=== PATIENT | female | born 1940 | race Caucasian/White ===

== ENCOUNTER → 2019-07-01 09:56 | Outpatient (BNVA) | payer MEDICARE, OTHER, SELFPAY | PROVIDERS: Family Provider Nurse Practitioner Family; Visit Provider Registered Nurse | DX: E11.9 Type 2 diabetes mellitus without complications (principal); R31.9 Hematuria, unspecified; N39.46 Mixed incontinence | CPT/HCPCS: 80053; 81000; 82044; 83036; 85025 ==

== ENCOUNTER 2019-09-11 05:51 | Day surgery (SDC) | payer MEDICARE, OTHER, SELFPAY ==
[2019-09-10 13:50] VITALS: BMI 27.0
[2019-09-11 06:19] VITALS: BP 173/104; PULSE 69; RESP 18; TEMP 36.3; O2SAT 94
[2019-09-11 06:33] LABS: Glucose Point of Care 143 mg/dL (70-110)
[2019-09-11] MEDS: sodium chloride 0.9% 1,000 ML 30 ML IV (06:35)
--- NOTE | 2019-09-11 06:37 | ANES.PREANE2 ---
Pre-Anesthetic Assessment Pre-Anesthetic Assessment: Height/Weight: Height 1.55 m Weight 64.864 kg Temp Pulse Resp BP Pulse Ox 97.4 F L 69 18 173/104 94 09/11/19 06:19 09/11/19 06:19 09/11/19 06:19 09/11/19 06:19 09/11/19 06:19 Preop Diagnosis: Subcutaneous mass right side of the face Proposed Procedure: Operation Date: 09/11/19 07:00 Proposed Procedures p Excision of 2 sebaceous cysts on face 39806 L72.3(Not Applicable) - Denis Valera MD Last intake: Intake Last Liquid Date 09/10/19 Last Liquid Time 18:00 Last Solid Date 09/10/19 Last Solid Time 18:00 Social: Social History: No alcohol and No tobacco Exam: Pre-Anes Outpt Exam: alert, oriented x 3, clear to auscultation bilaterally and regular rate & rhythm Airway: Submandibular: WNL Cervical ROM: WNL MP: 2 Dentition: False (UPPER and lower) History/ROS: No significant history except as noted Pulmonary: Pulmonary: None reported CV/HEM: CV/HEM: None reported : : None reported Hepatic: Hepatic: None reported GI: GI: GERD (occ) Metabolic: Metabolic: DM Musc/skel: Musc/skel: OA/DJD Neuropsych: Neuropsych: None reported Anesthetic Plan: ASA status: 2 Anesthesia: Anesthesia Evaluation and General Risk of > 500 ml blood loss (7ml/kg in children): No Meds/Allergies Current Medications: Current Medications Generic Name Dose Route Start Last Admin Trade Name Freq PRN Reason Stop Dose Admin Sodium Chloride 1,000 mls @ 30 ml s/hr 09/11/19 06:00 09/11/19 06:35 Sodium Chloride 0.9% IV 09/12/19 05:59 30 mls/hr .Q24H SOSA Administration PFSH Anesthesia PFSH: Medical History Diabetes mellitus type 2, controlled, without complications Surgical History History of adenoidectomy History of esophagogastroduodenoscopy (EGD) History of tonsillectomy Family History Mother Stroke Diabetes Brother Bone cancer Esophageal cancer Father Heart disease Denies family history of Anesthesia complication Bleeding disorder Social History Smoking and tobacco status: never smoked Alcohol intake: never Marital status: Single Current occupational status: unemployed Current gender identity: Female Data Anesthesia Other Labs: Laboratory Results - last 48 hr 09/11/19 06:30 POC Glucose 143 Cardiac Studies: No Data to Display
--- NOTE | 2019-09-11 07:04 | W.PM.OPSUD ---
Surgery/Procedure H&P Update DATE OF PROCEDURE: September 11, 2019 DATE H&P PERFORMED: 09/03/19 H&P UPDATE INFORMATION: I have reviewed H&P completed within last 30 days, I have examined patient prior to procedure and No changes to prior documentation PREOP DIAGNOSIS: Subcutaneous mass right side of the face PLANNED PROCEDURE: Operation Date: 09/11/19 07:00 Proposed Procedures p Excision of 2 sebaceous cysts on face 17910 L72.3(Not Applicable) - Denis Valera MD
[2019-09-11] MEDS: lidocaine 1% INJ 20 mL SUBCUT (07:16)
[2019-09-11 07:41] VITALS: BP 114/55; PULSE 63; RESP 16; TEMP 36.2; O2SAT 95
--- NOTE | 2019-09-11 07:47 | P.OP_ITS ---
Operative Report Date of procedure: September 11, 2019 Pre-op Diagnosis: Subcutaneous mass right side of the face and right side of neck Post-op Diagnosis: * 2 x 2 centimeter sebaceous cyst right side of face * 1 x 1 cm sebaceous cyst right side of the neck Procedure Done: Excision of sebaceous cyst right side of the face Excision sebaceous cyst right side of the neck Pathology: Sebaceous cyst from face and neck Surgeon: Denis Valera Anesthesia: MAC Estimated blood loss (mL): 5 Condition: stable Disposition: PACU Procedure: The patient is to be operating room and placed under MAC after IV antibiotic had been administered. The right side of the face and neck was prepped and draped in sterile manner. The sebaceous cyst on the right side of the neck measured 1 x 1 cm. Using 15 blade a 1 cm incision was made and the cyst was excised free from the surrounding subcutaneous tissue. Wound was irrigated with saline and subcutaneous tissues approximated using interrupted 3- 0 Vicryl suture and skin was closed using running subcuticular 4-0 Monocryl suture and surgical glue. The sebaceous cyst on the right side of the face anterior to the tragus measured 2 x 2 cm. Using 15 blade a 2 cm incision was made and the cyst was excised free from the surrounding subcutaneous tissue. Wound was irrigated with saline and subcutaneous tissues approximated using interrupted 3-0 Vicryl suture and skin was closed using running subcuticular 4-0 Monocryl suture and surgical glue. The patient was transferred to recovery room in stable condition.
[2019-09-11 08:09] VITALS: BP 132/72; PULSE 57; RESP 18; O2SAT 97
== END 2019-09-11 08:32 | disposition home or self-care (01) ==
PROVIDERS: PCP Nurse Practitioner Family; Visit Provider Surgery
PROC: (CPT 11421; principal; 2019-09-11 07:00)
DX: L72.0 Epidermal cyst (principal); K21.9 Gastro-esophageal reflux disease without esophagitis; E11.9 Type 2 diabetes mellitus without complications; M19.90 Unspecified osteoarthritis, unspecified site; Z79.82 Long term (current) use of aspirin; Z79.84 Long term (current) use of oral hypoglycemic drugs
CPT/HCPCS: 11421; 11442; 12041; 12051; 12345; 36416; 82962; 88307; J0690; J2001; J2704; J3010; J3490; J7030

== ENCOUNTER → 2020-01-13 15:11 | Outpatient (BNVA) | payer MEDICARE, OTHER, SELFPAY | PROVIDERS: PCP Nurse Practitioner Family; Visit Provider Nurse Practitioner Family | DX: N39.46 Mixed incontinence (principal); M25.511 Pain in right shoulder; I10 Essential (primary) hypertension; E11.9 Type 2 diabetes mellitus without complications | CPT/HCPCS: 81000 ==

== ENCOUNTER 2020-01-14 14:53 | Emergency (ER) | payer MEDICARE, OTHER, SELFPAY ==
--- NOTE | 2020-01-14 14:55 | ECG_ITS ---
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 Measurements Intervals [place] Rate: 74 P: 44 [place]: 180 QRS: -14 QRSD: 89 T: 31 QT: 365 QTc: 407 Interpretive Statements SINUS RHYTHM LOW QRS VOLTAGE IN PRECORDIAL LEADS [QRS DEFLECTION < 1.0 mV IN CHEST LEADS] POSSIBLE ANTERIOR MYOCARDIAL INFARCTION [30 ms Q WAVE IN V3/V4, OR R < 0.2 mV IN V4], PROBABLY OLD No previous ECG available for comparison Electronically Signed On 01-15-2020 18:35:31 CDT by Gisela Mendez M.D. [email or web address]
[2020-01-14 15:01] VITALS: BP 134/70; PULSE 75; RESP 14; TEMP 36.8; O2SAT 96; BMI 26.0
[2020-01-14 15:08] LABS: Basophils % 0.4 %; Eosinophils # 0.1 10^3/uL (0.0-0.8); Eosinophils % 1.2 %; Hematocrit 44.2 % (37.0-47.0); Hemoglobin 14.4 g/dL (11.5-15.3); Lymphocytes # 1.3 10^3/uL (0.8-4.8); Lymphocytes % 15.7 %; Mean Corpuscular HGB Conc 32.6 g/dL (30.0-36.0); Mean Corpuscular Hemoglobin 29.6 pg (28.0-34.0); Mean Corpuscular Volume 90.8 fL (81-99); Mean Platelet Volume 10.3 fL (7.4-10.4); Monocytes # 0.5 10^3/uL (0.2-0.9); Monocytes % 5.9 %; Neutrophils # 6.22 10^3/uL (1.8-7.7); Neutrophils % 76.4 %; Nucleated Red Blood Cells % 0 %; Platelet Count 312 10^3/cmm (130-400); Red Blood Count 4.87 10^6/uL (4.1-5.3); Red Cell Distribution Width 12.1 % (12.1-15.1); White Blood Count 8.1 10^3/uL (4.0-10.0)
[2020-01-14 15:27] LABS: Alanine Aminotransferase 13 U/L (0-33); Albumin Level 4.2 g/dL (3.5-5.2); Alkaline Phosphatase 75 IU/L (35-105); Anion Gap 15.5 (5-19); Aspartate Amino Transferase 24 U/L (0-32); Blood Urea Nitrogen 16 mg/dL (8-23); Calcium 9.9 mg/dL (8.5-10.5); Carbon Dioxide 25 mmol/L (22-29); Chloride 100 mmol/L (98-107); Globulin 2.1 g/dL (1.3-4.6); Glucose 319 mg/dL (65-115); Osmolality Calculated 295 mOsm/kg (285-295); Potassium 4.5 mmol/L (3.5-5.1); Sodium 136 mmol/L (136-145); Total Bilirubin 0.7 mg/dL (0.15-1.2); Total Protein 6.3 g/dL (6.6-8.7)
--- NOTE | 2020-01-14 16:08 | CTR_ITS ---
PROCEDURE INFORMATION: Exam: CT Head Without Contrast Exam date and time: 01/14/2020 5:36 PM Age: 79 years old Clinical indication: Injury or trauma; Fall; Blunt trauma (contusions or hematomas) TECHNIQUE: Imaging protocol: Computed tomography of the head without contrast. Radiation optimization: All CT scans at this facility use at least one of these dose optimization techniques: automated exposure control; mA and/or kV adjustment per patient size (includes targeted exams where dose is matched to clinical indication); or iterative reconstruction. COMPARISON: No relevant prior studies available. RADIATION DOSE METRICS: Total DLP (mGy-cm): 485.21 FINDINGS: Brain: Old left thalamic lacunar infarction. Cerebral arteriosclerosis. Cerebral and cerebellar atrophy with ventricular dilatation not inconsistent with the patient's chronological age. Mild small vessel ischemic disease. No visible evidence of acute intracranial pathologic process, trauma, or hemorrhage. Cerebral ventricles: No ventriculomegaly. Bones/joints: Unremarkable. No acute fracture. Paranasal sinuses: Mild chronic ethmoid sinusitis. Evidence of right maxillary sinusitis. Mastoid air cells: Visualized mastoid air cells are well aerated. Soft tissues: Unremarkable. CT/CT head wo con* [id number] IMPRESSION: No visible evidence of acute intracranial process, trauma, or hemorrhage. Radiation Dose CTDIVOL = (mGy): DLP = 485.21 (mGy-cm)
--- NOTE | 2020-01-14 16:08 | CTR_ITS ---
PROCEDURE INFORMATION: Exam: CT Cervical Spine Without Contrast Exam date and time: 01/14/2020 5:36 PM Age: 79 years old Clinical indication: Injury or trauma; Fall; Initial encounter; Blunt trauma TECHNIQUE: Imaging protocol: Computed tomography images of the cervical spine without contrast. Radiation optimization: All CT scans at this facility use at least one of these dose optimization techniques: automated exposure control; mA and/or kV adjustment per patient size (includes targeted exams where dose is matched to clinical indication); or iterative reconstruction. COMPARISON: No relevant prior studies available. RADIATION DOSE METRICS: Total DLP (mGy-cm): 485.21 FINDINGS: Vertebrae: No visible fracture, subluxation, or dislocation. Spondylosis deformans. Advanced facet arthrosis. Straightening of the normal cervical lordosis. Discs/Spinal canal/Neural foramina: Advanced degenerative disc disease C5/C6 and C6/C7 and to a less significant degree C4/C5. Osteopenia. Small left paramedian focal annular disc bulge osteophyte complex C5/C6 without central canal stenosis. Mild diffuse annular disc bulge osteophyte complex C6/C7 without significant central canal stenosis. Soft tissues: Unremarkable. Sinuses: Right maxillary sinusitis. Thyroid: Multinodular thyroid goiter. No follow-up recommended. Lungs: Lung apices are unremarkable for age. CT/CT cervical spin wo con* [id number] IMPRESSION: No visible acute osseous abnormality, fracture, subluxation, or dislocation. Radiation Dose CTDIVOL = (mGy): DLP = 485.21 (mGy-cm)
--- NOTE | 2020-01-14 16:08 | XRR_ITS ---
PROCEDURE INFORMATION: Exam: XR Right Shoulder Exam date and time: 01/14/2020 4:08 PM Age: 79 years old Clinical indication: Injury or trauma; Fall; Blunt trauma (contusions or hematomas); Patient HX: Lifted heavy bag and fell on right shoulder TECHNIQUE: Imaging protocol: XR Right shoulder. Views: 2 or more views. COMPARISON: No relevant prior studies available. FINDINGS: Bones/joints: Negative for acute bone abnormalities. Soft tissues: Unremarkable XR/XR shoulder RT min 2V* [id number] IMPRESSION: No acute findings.
--- NOTE | 2020-01-14 16:16 | ED_ITS ---
HPI - Weakness General: Chief complaint: Weakness Stated complaint: WEAKNESS Time Seen by Provider: 01/14/20 16:06 Source: patient Mode of arrival: ambulatory Limitations: no limitations History of Present Illness: HPI Narrative: 79-year-old female who states she is had multiple falls of last couple weeks along with some generalized weakness. Daughter states she walks with a shuffle gait and gets caught trips often. She had a fall yesterday and had right shoulder pain since then. She denies any worsening or improving factors. Denies any other injuries. Associated symptoms: Denies chest pain, chills, dysuria, easy bruising, fever(s), headache(s), nausea or vomiting Review of Systems Const: Denies: fever(s), chills, body aches or change in appetite Eyes: Denies: blurry vision or eye discomfort ENMT: Denies: throat pain or dental pain Card: Denies: chest pain Resp: Denies: dyspnea GI: Denies: abdominal pain, nausea, vomiting or diarrhea : Denies: dysuria Musc: Reports: joint pain and muscle weakness Skin/Breast: Denies: rash Neuro: Denies: headache(s) Psych: Denies: depression Kris/Lymph: Denies: easy bruising All/Imm: Denies: urticaria PFSH ED PFSH: Medical History Diabetes mellitus type 2, controlled, without complications Surgical History History of adenoidectomy History of esophagogastroduodenoscopy (EGD) History of excision of epidermal inclusion cyst (~08/2019) History of tonsillectomy Family History Mother Stroke Diabetes Brother Bone cancer Esophageal cancer Father Heart disease Denies family history of Anesthesia complication Bleeding disorder Social History Smoking and tobacco status: never smoked Alcohol intake: never Marital status: Single Current occupational status: unemployed Current gender identity: Female Physical Exam Const: COMMON NORMALS: no acute distress, patient oriented x3 and healthy appearing HENMT: COMMON NORMALS: normocephalic and atraumatic HEAD & SCALP: normocephalic and atraumatic Eye: COMMON NORMALS: Equal, round and reactive pupils present and EOMs intact bilaterally PUPIL: Yes Equal, round and reactive pupils present Neck/C-Spine: COMMON NORMALS: full ROM and supple Chest: COMMONS NORMALS: normal inspection of the chest and normal palpation of entire chest wall Resp: COMMON NORMALS: normal respiratory effort, No retractions, No use of accessory muscles and clear to auscultation bilaterally AUSCULTATION: clear to auscultation bilaterally Cardio: COMMON NORMALS: regular rate, regular rhythm and No murmurs present (Cardio) RATE: regular rate RHYTHM: regular rhythm GI: COMMON NORMALS: Normal to inspection, nondistended, normoactive bowel sounds present, Soft to palpation, non-tender and no masses PALPATION: Yes Soft to palpation Extremity: COMMON NORMALS: normal to inspection and full ROM NARRATIVE EXTREMITY EXAM: Tenderness over right shoulder with no obvious deformity full range of motion is available Neuro: COMMON NORMALS: patient oriented x3, moves all extremities and no focal motor deficits Psych: COMMON NORMALS: mental status grossly normal, Normal thought process present and cooperative THOUGHT PROCESS: Normal thought process present Skin: COMMON NORMALS: no rashes or lesions noted and no wounds GENERAL SKIN EXAM: no rashes or lesions noted Course Vital Signs: Vital signs: Vital Signs Temperature 98.2 F 01/14/20 15:01 Pulse Rate 74 01/14/20 16:27 Respiratory Rate 16 01/14/20 16:27 Blood Pressure 147/67 01/14/20 16:27 Pulse Oximetry 96 01/14/20 16:27 MDM - Weakness MDM Narrative: Medical decision making narrative: Patient presents here with frequent falls along with generalized weakness. Patient's blood work here is all normal except for hyperglycemia and she does have a history of diabetes. Patient is able ambulate but believes she is falling due to needing to use a walker to ambulate. Patient CT head and C-spine and x-ray of her shoulder are normal. Patient is stable for discharge and will prescribe her in a walker. She is to follow-up with PCP and return if worsening Lab Data: Labs: Lab Results 01/14/20 01/14/20 Range/Units 15:03 15:03 WBC 8.1 (4.0-10.0) 10^3/ uL RBC 4.87 (4.1-5.3) 10^6/u L Hgb 14.4 (11.5-15.3) g/dL Hct 44.2 (37.0-47.0) % MCV 90.8 (81-99) fL MCH 29.6 (28.0-34.0) pg MCHC 32.6 (30.0-36.0) g/dL RDW 12.1 (12.1-15.1) % Plt Count 312 (130-400) 10^3/c mm MPV 10.3 (7.4-10.4) fL Neut % (Auto) 76.4 % Lymph % (Auto) 15.7 % Dickens % (Auto) 5.9 % Eos % (Auto) 1.2 % Baso % (Auto) 0.4 % Neut # (Auto) 6.22 (1.8-7.7) 10^3/u L Lymph # (Auto) 1.3 (0.8-4.8) 10^3/u L Dickens # (Auto) 0.5 (0.2-0.9) 10^3/u L Eos # (Auto) 0.1 (0.0-0.8) 10^3/u L Baso # (Auto) 0.0 (0.0-0.1) 10^3/u L Nucleated RBC % (a uto) 0 % Nucleated RBCs # 0.0 /100WBC Sodium 136 (136-145) mmol/L Potassium 4.5 (3.5-5.1) mmol/L Chloride 100 (98-107) mmol/L Carbon Dioxide 25 (22-29) mmol/L Anion Gap 15.5 (5-19) BUN 16 (8-23) mg/dL Creatinine 0.5 (0.5-0.9) mg/dL GFR Calculation Not Reportable Glucose 319 H (65-115) mg/dL Calculated Osmolal ity 295 (285-295) mOsm/k g Calcium 9.9 (8.5-10.5) mg/dL Total Bilirubin 0.7 (0.15-1.2) mg/dL AST 24 (0-32) U/L ALT 13 (0-33) U/L Alkaline Phosphata se 75 (35-105) IU/L Total Protein 6.3 L (6.6-8.7) g/dL Albumin 4.2 (3.5-5.2) g/dL Globulin 2.1 (1.3-4.6) g/dL Imaging Data^: CT Head: Radiologist's impression: [address] [place] [address] CT Scan Report Signed Patient: Mary Alice Wilson Unit #: [id number] : 1940 Age/Sex: 79 / F ADM Date: 01/14/20 Loc: ER Room/Bed: Attending Dr: Ordering Provider/Ordering MD: Herman Chauhan MD Date of Service: 01/14/20 Procedure(s): CT head wo con* [id number] Accession Number(s): [id number] Report Number: [id number] PROCEDURE INFORMATION: Exam: CT Head Without Contrast Exam date and time: 01/14/2020 5:36 PM Age: 79 years old Clinical indication: Injury or trauma; Fall; Blunt trauma (contusions or hematomas) TECHNIQUE: Imaging protocol: Computed tomography of the head without contrast. Radiation optimization: All CT scans at this facility use at least one of these dose optimization techniques: automated exposure control; mA and/or kV adjustment per patient size (includes targeted exams where dose is matched to clinical indication); or iterative reconstruction. COMPARISON: No relevant prior studies available. RADIATION DOSE METRICS: Total DLP (mGy-cm): 485.21 FINDINGS: Brain: Old left thalamic lacunar infarction. Cerebral arteriosclerosis. Cerebral and cerebellar atrophy with ventricular dilatation not inconsistent with the patient's chronological age. Mild small vessel ischemic disease. No visible evidence of acute intracranial pathologic process, trauma, or hemorrhage. Cerebral ventricles: No ventriculomegaly. Bones/joints: Unremarkable. No acute fracture. Paranasal sinuses: Mild chronic ethmoid sinusitis. Evidence of right maxillary sinusitis. Mastoid air cells: Visualized mastoid air cells are well aerated. Soft tissues: Unremarkable. CT/CT head wo con* [id number] IMPRESSION: No visible evidence of acute intracranial process, trauma, or hemorrhage. Other CT: Radiologist's impression: [address] [address] [address] Scan Report Signed Patient: Mary Alice Wilson Unit #: [id number] : 1940 Age/Sex: 79 / F ADM Date: 01/14/20 Loc: ER Room/Bed: Attending Dr: Ordering Provider/Ordering MD: Herman Chauhan MD Date of Service: 01/14/20 Procedure(s): CT cervical spin wo con* [id number] Accession Number(s): [id number] Report Number: [id number] PROCEDURE INFORMATION: Exam: CT Cervical Spine Without Contrast Exam date and time: 01/14/2020 5:36 PM Age: 79 years old Clinical indication: Injury or trauma; Fall; Initial encounter; Blunt trauma TECHNIQUE: Imaging protocol: Computed tomography images of the cervical spine without contrast. Radiation optimization: All CT scans at this facility use at least one of these dose optimization techniques: automated exposure control; mA and/or kV adjustment per patient size (includes targeted exams where dose is matched to clinical indication); or iterative reconstruction. COMPARISON: No relevant prior studies available. RADIATION DOSE METRICS: Total DLP (mGy-cm): 485.21 FINDINGS: Vertebrae: No visible fracture, subluxation, or dislocation. Spondylosis deformans. Advanced facet arthrosis. Straightening of the normal cervical lordosis. Discs/Spinal canal/Neural foramina: Advanced degenerative disc disease C5/C6 and C6/C7 and to a less significant degree C4/C5. Osteopenia. Small left paramedian focal annular disc bulge osteophyte complex C5/C6 without central canal stenosis. Mild diffuse annular disc bulge osteophyte complex C6/C7 without significant central canal stenosis. Soft tissues: Unremarkable. Sinuses: Right maxillary sinusitis. Thyroid: Multinodular thyroid goiter. No follow-up recommended. Lungs: Lung apices are unremarkable for age. CT/CT cervical spin wo con* [id number] IMPRESSION: No visible acute osseous abnormality, fracture, subluxation, or dislocation. Other Xray: Radiologist's impression: [address] [address] XRay Report Signed Patient: Mary Alice Wilson Unit #: [id number] : 1940 Age/Sex: 79 / F ADM Date: 01/14/20 Loc: ER Room/Bed: Attending Dr: Ordering Provider/Ordering MD: Herman Chauhan MD Date of Service: 01/14/20 Procedure(s): XR shoulder RT min 2V* [id number] Accession Number(s): [id number] Report Number: [id number] PROCEDURE INFORMATION: Exam: XR Right Shoulder Exam date and time: 01/14/2020 4:08 PM Age: 79 years old Clinical indication: Injury or trauma; Fall; Blunt trauma (contusions or hematomas); Patient HX: Lifted heavy bag and fell on right shoulder TECHNIQUE: Imaging protocol: XR Right shoulder. Views: 2 or more views. COMPARISON: No relevant prior studies available. FINDINGS: Bones/joints: Negative for acute bone abnormalities. Soft tissues: Unremarkable XR/XR shoulder RT min 2V* [id number] IMPRESSION: No acute findings. EKG Data^: EKG 1: Attestation: I personally reviewed and interpreted this EKG as follows: EKG interpretation date: 01/14/20 EKG interpretation time: 15:06 Interpretation: Normal sinus rhythm heart rate [address] or T wave abnormalities QRS 89 QTc 393 Discharge Plan Discharge Patient Disposition: Home Clinical Impression: Falls frequently Contusion of right shoulder Qualifiers: Encounter type: initial encounter Qualified Code(s): S40.011A - Contusion of right shoulder, initial encounter Condition: Stable Prescriptions: New (DME) DME: Walker Unit See Rx Instructions .ROUTE .MEDSUPPLY Qty: 1 RF: 0 No Action lisinopril 10 mg tablet 10 mg PO DAILY Qty: 30 RF: 2 aspirin 81 mg tablet,delayed release (DR/EC) 81 mg PO PRN RF: 0 mecobalamin (vitamin B12) 1,000 mcg tablet,disintegrating 1,000 mcg SUBLINGUAL PRN RF: 0 flaxseed-omega3,6,9-fatty acid 1,300-670-155 mg Capsule 1 cap PO PRN RF: 0 metformin 1,000 mg tablet 1,000 mg PO BID RF: 0 glipizide 5 mg tablet 5 mg PO BID RF: 0 Discharge Orders: Discharge Order (Routine); Ordered 01/14/20 Ordered By: Herman Chauhan Referrals: Chelsie Tang FNP [Primary Care Provider] - 1-3 days Discharge Diet: Advance as tolerated Discharge Activity: Resume usual activity Patient Instructions: Fall Prevention (ED) Coding Level of Care Code ED [employer] for Jose Luis Fwd Exam Comprehensive
[2020-01-14 16:27] VITALS: BP 147/67; PULSE 74; RESP 16; O2SAT 96
[2020-01-14 17:00] VITALS: BP 148/57; PULSE 76; O2SAT 94
[2020-01-14 18:00] VITALS: BP 137/78; PULSE 80; RESP 16; O2SAT 92
== END 2020-01-14 18:37 | disposition home or self-care (01) ==
PROVIDERS: Emergency Provider Emergency Medicine; PCP Nurse Practitioner Family
DX: S40.011A Contusion of right shoulder, initial encounter (principal); Z79.84 Long term (current) use of oral hypoglycemic drugs; Z79.82 Long term (current) use of aspirin; E11.9 Type 2 diabetes mellitus without complications; W19.XXXA Unspecified fall, initial encounter
CPT/HCPCS: 12345; 36415; 70450; 72125; 73030; 80053; 85025; 93005; 99282; 99283

== ENCOUNTER → 2020-05-05 08:27 | Outpatient (BNVA) | payer MEDICARE, OTHER, SELFPAY | PROVIDERS: PCP Nurse Practitioner Family; Visit Provider Nurse Practitioner Family | DX: R30.0 Dysuria (principal); E11.9 Type 2 diabetes mellitus without complications; I10 Essential (primary) hypertension | CPT/HCPCS: 80048; 81000; 83036 ==

== ENCOUNTER → 2020-10-07 14:15 | Outpatient (BNVA) | payer MEDICARE, OTHER, SELFPAY | PROVIDERS: PCP Nurse Practitioner Family; Visit Provider Nurse Practitioner Family | DX: I10 Essential (primary) hypertension (principal); E11.9 Type 2 diabetes mellitus without complications | CPT/HCPCS: 80053; 83036 ==

== ENCOUNTER → 2020-10-13 08:41 | Outpatient (BNVA) | payer MEDICARE, OTHER, SELFPAY | PROVIDERS: PCP Nurse Practitioner Family; Visit Provider Nurse Practitioner Family | DX: E11.9 Type 2 diabetes mellitus without complications (principal) | CPT/HCPCS: 80061 ==